=== PATIENT | female | born 1980 | race Caucasian/White ===

== ENCOUNTER 2017-08-22 11:50 | Outpatient (CLI) | payer OTHER | END 2017-08-22 15:15 | disposition home or self-care (01) | LOC: OBT 11:50 → L-D 11:51 → OBT 15:15 | DX: O36.8130 Decreased fetal movements, third trimester, not applicable or unspecified (principal); O09.523 Supervision of elderly multigravida, third trimester; Z3A.34 34 weeks gestation of pregnancy | CPT/HCPCS: 76818 ==

== ENCOUNTER 2017-09-09 21:00 | Inpatient (IN) | payer OTHER ==
[2017-09-09] MEDS: LACTATED RINGER'S 1,000 ML IV (22:57)
[2017-09-10] MEDS ORDERED: OXYTOCIN 30 UNITS/LR 500 ML IV (00:15)
[2017-09-10] MEDS ORDERED: METHYLERGONOVINE 0.2 MG INJ IM (00:15)
[2017-09-10] MEDS ORDERED: CARBOPROST 250 MCG INJ IM (00:15)
[2017-09-10] MEDS ORDERED: MISOPROSTOL 200 MCG TAB PR (00:15)
[2017-09-10 03:01] LABS: ADD MAN DIFF? NO
[2017-09-10 03:06] LABS: WHITE BLOOD COUNT 7.3 10^3/ul (4.8-10.8)
[2017-09-10 03:06] LABS: BASOPHILS % 0.3 % (0.0-2.0); EOSINOPHILS # 0.1 10^3/ul (0.0-0.5); HEMOGLOBIN 10.5 g/dl (12.0-16.0); LYMPHOCYTES # 1.9 10^3/ul (0.8-2.9); LYMPHOCYTES % 26.3 % (15.0-51.0); MEAN CORPUSCULAR HEMOGLOBIN 28.4 pg (29.0-33.0); MEAN CORPUSCULAR HGB CONC 31.8 g/dl (32.0-37.0); MEAN CORPUSCULAR VOLUME 89.2 fl (82.0-101.0); MEAN PLATELET VOLUME 10.1 fl (7.4-10.4); MONOCYTE # 0.5 10^3/ul (0.3-0.9); MONOCYTES % 7.3 % (0.0-11.0); NEUTROPHIL # 4.7 10^3/ul (1.6-7.5); NEUTROPHILS % 64.7 % (39.0-77.0); PLATELET COUNT 245 10^3/UL (140-415); RED CELL DISTRIBUTION WIDTH 13.9 % (11.5-14.5)
[2017-09-10 03:19] LABS: ADD UMIC YES; UR ASCORBIC ACID NEGATIVE (NEGATIVE); UR BILIRUBIN (Dip) NEGATIVE (NEGATIVE); UR BLOOD (Dip) 3+ mg/dL (NEGATIVE); UR CLARITY CLEAR (CLEAR); UR COLOR STRAW (YELLOW); UR GLUCOSE (Dip) NEGATIVE (NEGATIVE); UR KETONES (Dip) NEGATIVE (NEGATIVE); UR LEUKOCYTE ESTERASE (Dip) 2+ Leu/ul (NEGATIVE); UR NITRITE (Dip) NEGATIVE (NEGATIVE); UR RBC 1 /HPF (0-5); UR SPECIFIC GRAVITY (Dip) 1.003 (1.003-1.030); UR TOTAL PROTEIN (Dip) NEGATIVE (NEGATIVE); UR UROBILINOGEN (Dip) NEGATIVE (NEGATIVE); UR WBC 9 /HPF (0-5)
[2017-09-10 03:32] LABS: INR 0.97
[2017-09-10 03:33] LABS: PARTIAL THROMBOPLASTIN TIME 26.7 Sec (25.0-35.0)
[2017-09-10] MEDS: LACTATED RINGER'S 1,000 ML IV ×5 (04:04→22:18)
[2017-09-10 04:38] LABS: HEPATITIS B SURFACE ANTIGEN NEGATIVE (NEGATIVE)
[2017-09-10] MEDS: CEFAZOLIN 2 GM/50 ML (PMX) 50 ML IVPB (05:54)
[2017-09-10] MEDS ORDERED: BUPIVACAINE 0.75%/DEXT (SPINAL) 2 ML INJ (07:00)
[2017-09-10] MEDS ORDERED: OXYTOCIN 10 UNIT INJ (07:00)
[2017-09-10] MEDS ORDERED: OXYTOCIN 30 UNITS/LR 500 ML BAG IV (07:00)
[2017-09-10] MEDS ORDERED: morphine SULFATE/PF (10 MG/10 ML) INJ (07:00)
[2017-09-10] MEDS: BETAMET NA PHOS/AC(6 MG/ML) 5ML INJ IM (22:03)
[2017-09-10] MEDS: METOCLOPRAMIDE 10 MG INJ IV (22:06)
[2017-09-10] MEDS: CITRIC ACID/SODIUM CITRATE 15 ML CUP PO (22:06)
[2017-09-10] MEDS: FAMOTIDINE 20 MG INJ IV (22:06)
[2017-09-10] MEDS: CEFAZOLIN 2 GM/50 ML (PMX) 50 ML IV (22:11)
[2017-09-10 23:26] LABS: RAPID PLASMA REAGIN NONREACTIVE (NR)
[2017-09-11] MEDS ORDERED: ZOLPIDEM 5 MG TAB PO (00:30)
[2017-09-11] MEDS ORDERED: HYDROmorphONE 0.5 MG/0.5 ML SYG IV (00:30)
[2017-09-11] MEDS ORDERED: CARBOPROST 250 MCG INJ IM (00:30)
[2017-09-11] MEDS ORDERED: METHYLERGONOVINE 0.2 MG INJ IM (00:30)
[2017-09-11] MEDS ORDERED: LANOLIN 7 GM TUBE TOP (00:30)
[2017-09-11] MEDS ORDERED: NALOXONE (0.4 MG/ML) INJ IV (00:30)
[2017-09-11] MEDS ORDERED: MISOPROSTOL 200 MCG TAB PR (00:30)
[2017-09-11] MEDS: CEFAZOLIN 2 GM/50 ML (PMX) 50 ML IV (00:30)
[2017-09-11] MEDS ORDERED: OXYTOCIN 30 UNITS/LR 500 ML IV (00:30)
[2017-09-11] MEDS ORDERED: ONDANSETRON 4 MG INJ IV (00:30)
[2017-09-11] MEDS ORDERED: OXYCODONE/ACETAMINOPHEN (5/325) TAB PO (00:30)
[2017-09-11] MEDS: KETOROLAC 30 MG INJ IV ×2 (00:53→19:26)
[2017-09-11] MEDS: DIPHENHYDRAMINE 50 MG INJ IV (01:33)
[2017-09-11] MEDS: OXYTOCIN 30 UNITS/LR 500 ML IV ×2 (01:41→03:31)
[2017-09-11] MEDS: HYDROmorphONE 0.5 MG/0.5 ML SYG IV (01:42)
[2017-09-11] MEDS: SENNA/DOCUSATE NA (8.6MG/50MG) TAB PO ×2 (09:00→20:53)
[2017-09-11 09:36] LABS: ADD MAN DIFF? NO
[2017-09-11 09:39] LABS: WHITE BLOOD COUNT 10.2 10^3/ul (4.8-10.8)
[2017-09-11 09:39] LABS: BASOPHILS % 0.2 % (0.0-2.0); HEMATOCRIT 34.6 % (37.0-47.0); HEMOGLOBIN 11.4 g/dl (12.0-16.0); LYMPHOCYTES # 0.8 10^3/ul (0.8-2.9); LYMPHOCYTES % 7.9 % (15.0-51.0); MEAN CORPUSCULAR HGB CONC 32.9 g/dl (32.0-37.0); MEAN PLATELET VOLUME 10.1 fl (7.4-10.4); MONOCYTE # 0.3 10^3/ul (0.3-0.9); NEUTROPHILS % 88.3 % (39.0-77.0); PLATELET COUNT 275 10^3/UL (140-415); RED BLOOD COUNT 3.93 10^6/ul (4.20-5.40); RED CELL DISTRIBUTION WIDTH 13.7 % (11.5-14.5)
[2017-09-11] MEDS: CEFAZOLIN 2 GM/50 ML (PMX) 50 ML IVPB ×2 (14:22→19:31)
[2017-09-12] MEDS: IBUPROFEN 600 MG TAB PO ×4 (00:33→17:53)
[2017-09-12] MEDS: CEFAZOLIN 2 GM/50 ML (PMX) 50 ML IVPB (03:57)
[2017-09-12] MEDS: SENNA/DOCUSATE NA (8.6MG/50MG) TAB PO ×2 (09:20→21:15)
[2017-09-12] MEDS: OXYCODONE/ACETAMINOPHEN (5/325) TAB PO ×3 (12:06→21:15)
[2017-09-13] MEDS: IBUPROFEN 600 MG TAB PO ×4 (01:26→17:28)
[2017-09-13] MEDS: SENNA/DOCUSATE NA (8.6MG/50MG) TAB PO ×2 (08:29→21:50)
[2017-09-13] MEDS: OXYCODONE/ACETAMINOPHEN (5/325) TAB PO ×2 (08:30→16:29)
[2017-09-14] MEDS: OXYCODONE/ACETAMINOPHEN (5/325) TAB PO ×3 (00:48→13:12)
[2017-09-14] MEDS: IBUPROFEN 600 MG TAB PO ×3 (05:54→12:11)
[2017-09-14] MEDS: SENNA/DOCUSATE NA (8.6MG/50MG) TAB PO (09:58)
== END 2017-09-14 15:55 | disposition home or self-care (01) | DRG 765 ==
LOC: OBT 21:00 → L-D 09-11 00:38 → PP1 09-11 03:15
PROC: 10D00Z1 Extraction of Products of Conception, Low, Open Approach (ICD-10-PCS; principal; 2017-09-10 23:00)
PROC: 0UL70ZZ Occlusion of Bilateral Fallopian Tubes, Open Approach (ICD-10-PCS; 2017-09-10 23:00)
PROC: 3E033VJ Introduction of Other Hormone into Peripheral Vein, Percutaneous Approach (ICD-10-PCS; 2017-09-10 23:00)
DX: O34.211 Maternal care for low transverse scar from previous cesarean delivery (principal); O60.14X0 Preterm labor third trimester with preterm delivery third trimester, not applicable or unspecified; Z30.2 Encounter for sterilization; Z3A.39 39 weeks gestation of pregnancy; Z37.0 Single live birth
CPT/HCPCS: 76815; 76818; 81001; 85025; 85610; 85730; 86592; 86850; 86900; 86901; 87340; 88302; 96360; 99464